=== PATIENT | male | born 1980 | race Caucasian/White ===

== ENCOUNTER 2024-08-26 22:28 | Emergency (ER) | payer OTHER ==
[~2024-08-26] VITALS: Ht 182.9 cm; Wt 99.0 kg
[~2024-08-26 22:28] MED LIST: AMBIEN10 MG PO; LOSARTAN POTASS1 TA4; LOSARTAN/HCT1 TA1 PO; METHOCARBAMOL500 MG PO; NEURONTIN300 MG PO; OXYCODONE5 M1 PO; PANTOPRAZOLE SO40 M1 PO; ZOFRAN4 MG/TAB PO
[2024-08-26 22:39] VITALS: BP 135/78
[2024-08-26] MEDS ORDERED: ASPIRIN 81 MG/TAB PO ONE (22:45)
[2024-08-26 23:01] VITALS: BP 136/92
[2024-08-26 23:04] LABS: BASO% 0.8 % (0-3); HEMATOCRIT 38.2 % (39.0-50.0); HEMOGLOBIN 11.7 g/dl (14.0-18.0); IMMATURE GRANULOCYTES 0.2 % (0.0-5.0); LYMPH% 26.3 % (15-41); MEAN CELL VOLUME 81.1 fL CALC (80.0-100.0); MEAN CORPUSCULAR HGB 24.8 pG CALC (26.0-32.0); MEAN CORPUSCULAR HGB CONC 30.6 g/dL CAL (32.0-36.0); MONO% 10.8 % (2-13); NEUT# 3.11 thou/uL (1.82-7.42); NEUT% 60.9 % (42-76); RED BLOOD COUNT 4.71 mill/uL (4.70-6.10)
[2024-08-26 23:18] LABS: ALKALINE PHOSPHATASE 78 u/l (38-126); ANION GAP 10 (6-22 (CALC)); BUN 11 mg/dL (9-20); BUN/CREATININE RATIO 12 (12-20 (CALC)); CARBON DIOXIDE 21 mmol/l (22-30); CHLORIDE 116 mmol/l (95-108); CREATININE 0.9 mg/dL (0.7-1.3); ESTIMATED GFR 109 ML/MIN (>=90 (CALC)); ETHYL ALCOHOL 94 mg/dl (0-30); POTASSIUM 3.4 mmol/l (3.5-5.1); SGOT/AST 48 u/l (17-59); SODIUM 144 mmol/l (137-146)
[2024-08-26 23:24] LABS: ALBUMIN 3.6 g/dL (3.2-5.0); BILIRUBIN, TOTAL 0.2 mg/dL (0.2-1.3); TOTAL PROTEIN 6.2 g/dL (6.3-8.2)
[2024-08-26 23:32] VITALS: BP 155/99
[2024-08-27 00:01] VITALS: BP 157/100
[2024-08-27] MEDS ORDERED: IBUPROFEN 800 MG/TAB PO ONE (00:20)
[2024-08-27] MEDS ORDERED: ACETAMINOPHEN 325 MG/TAB PO ONE (00:30)
[2024-08-27 00:31] VITALS: BP 159/97
[2024-08-27 00:33] LABS: URINE BILIRUBIN - DIPSTICK Negative (NEGATIVE); URINE BLOOD DIPSTICK Negative (NEGATIVE); URINE CLARITY Clear; URINE COLOR Yellow; URINE GLUCOSE - DIPSTICK Negative (NEGATIVE); URINE KETONE Trace mg/dL (NEGATIVE); URINE LEUK ESTERASE Negative (Negative); URINE NITRITE - DIPSTICK Negative (Negative); URINE PH 5.5 (4.5-8.0); URINE PROTEIN - DIPSTICK Negative (NEG-TRACE); URINE SPECIFIC GRAVITY >=1.030; URINE UROBILINOGEN - DIPSTICK 0.2 E.U./dL (0.2)
[2024-08-27 01:01] VITALS: BP 158/110
[2024-08-27 01:17] VITALS: BP 158/110
[2024-08-30] MEDS ORDERED: HYZAAR1 TA2 PO (13:07)
[2024-08-30] MEDS ORDERED: AMIODARONE HYD100 MG (13:08)
[2024-08-30] MEDS ORDERED: B121000 MC1 PO (13:08)
[2024-08-30] MEDS ORDERED: ONDANSETRON4 MG PO (13:08)
[2024-08-30] MEDS ORDERED: ASPIRIN 81 LOW81 MG PO (13:09)
[2024-08-30] MEDS ORDERED: OLANZAPINE ODT10 MG PO (13:10)
[2024-08-30] MEDS ORDERED: DEXTROSTAT10 MG PO (13:10)
== END 2024-08-27 01:17 | DRG 313 ==
LOC: ED 22:28
PROVIDERS: Emergency Medicine
DX: R07.9 Chest pain, unspecified (principal); I48.91 Unspecified atrial fibrillation; F10.129 Alcohol abuse with intoxication, unspecified; Y90.3 Blood alcohol level of 60-79 mg/100 ml; F41.9 Anxiety disorder, unspecified; F32.A Depression, unspecified; G62.9 Polyneuropathy, unspecified; Z98.84 Bariatric surgery status; Z72.0 Tobacco use; V58.5XXA Driver of pick-up truck or van injured in noncollision transport accident in traffic accident, initial encounter